=== PATIENT | male | born 1960 | race Caucasian/White ===

== ENCOUNTER → 2018-05-25 09:24 | Outpatient (CLI) | payer BC ==
[2015-08-20 08:27] VITALS: BMI 32.3
[~2018-05-25 09:24] MED LIST: BENICAR20 MG PO; ZIAC 5-6.25 MG1 TAB PO
== END | disposition home or self-care (01) ==
LOC: D.US 09:24
DX: E04.1 Nontoxic single thyroid nodule (principal)